=== PATIENT | male | born 1970 | race Hispanic/Latino ===

== ENCOUNTER 2023-06-08 20:29 | Emergency (ER) | payer OTHER ==
[2023-06-08] MEDS ORDERED: Ketorolac Tromethamine 30 MG/ML VIAL ONE (21:14)
[2023-06-08] MEDS ORDERED: Diazepam 10 MG/2 ML SYRINGE ONE (21:14)
== END 2023-06-08 22:37 | disposition home or self-care (01) ==
LOC: CSHERS 20:29
DX: M62.838 Other muscle spasm (principal); I10 Essential (primary) hypertension
CPT/HCPCS: 96372; 99283; J1885; J3360